=== PATIENT | male | born 1945 | race Caucasian/White ===

== ENCOUNTER 2017-09-22 10:45 | Inpatient (IN) | payer BC, OTHER ==
[2017-09-22] VITALS (7 sets, daily range): BP systolic 145–174; BP diastolic 67–88; PULSE 60–64; TEMP 36.4–37.1; O2SAT 93–96; Ht 182.9 cm; Wt 83.5 kg
[~2017-09-22] VITALS: Ht 182.9 cm; Wt 83.5 kg
--- NOTE | 2017-09-22 09:59 | History and Physical ---
History & Physical Date of Service Sep 22, 2017. History & Physical Chief Complaint rm#7 here for f/u and discussion for LLE claudication. C/O left hip buttock tightening, and continues to have numbness of the left leg and buttocks. No open areas History of Present Illness I had the pleasure of seeing All Melton today for reevaluation of his left lower extremity. He recently had his back surgery with fairly good results. He now has left buttock claudication and very short distances of less than 50 feet. It is relieved with rest but he has to rest for a few minutes. He also complains of some numbness in the leg that develops once he gets the blood tightness. Physical Exam Vitals & Measurements HR: 69 (Monitored) BP: 148/70 SpO2: 97% On exam is blood pressure is 140/90. Femoral pulses are 2 bilaterally. He does have a palpable pulse in the right leg bypass. Left lower extremity has no pulses below the groin that he has decreased capillary refill of the left foot. There is no ulcerations or significant ischemic changes seen. Assessment/Plan 1.Atherosclerosis of [place] arteries of extremities with intermittent claudication, left leg At this point I think he does have significant buttock claudication. Recommended arteriography of the left lower extremity. He does have an aortobifemoral bypass in place. If we can get around the bifurcation and there is anything there to be intervened we will intervene at that time. If we cannot get across the other side than we will either consider a radial approach or an operative approach. I have discussed the risks options and benefits of the procedure with the patient. The patient understands the risks options and benefits and agrees to the procedure. We will keep you informed as to his results and future plans. Sincerely, MICHAEL Dixon MD Problem List/Past Medical History Ongoing Atherosclerosis HTN ( hypertension) Hx of abdominal aortic aneurysm Hyperlipidemia PVD (peripheral vascular disease) S/p femoral-popliteal bypass surgery Tobacco user Historical No qualifying data Procedure/Surgical History Ultrasound of pseudoaneurysm (), double bi-fem (1993), Kldfi-dqeed-kfebzyd vascular bypass, Hernia repair, Repair of aneurysm, Sciatic nerve compression. Medications aspirin 81 mg oral delayed release tablet, 81 mg= 1 tab, PO, Daily atorvastatin 20 mg oral tablet, 20 mg= 1 tab, PO, Daily citalopram 20 mg oral tablet, 40 mg= 2 tab, PO, Daily gabapentin 300 mg oral capsule, 600 mg= 2 cap, PO, tid lisinopril 2.5 mg oral tablet, 2.5 mg= 1 tab, PO, Daily lorazepam 0.5 mg oral tablet, 0.5 mg= 1 tab, PO, Daily, PRN multivitamin with iron, 1 tab, PO , Daily Plendil 5 mg oral tablet, extended release, 1 tab, PO, Daily tiZANidine 4 mg oral tablet, 4 mg= 1 tab, PO, qhs Vitamin C 500 mg oral capsule, 500 mg= 1 cap, PO, Daily Allergies NKA Social History Tobacco Former smoker, Stopped age 65 Years. Family History Diabetes: Sister. Heart disease: Mother. High Blood Pressure: Mother. Review of systems is positive for skin change of color in his lower legs, head and neck no complaints, cardiovascular no complaints, respiratory no complaints , musculoskeletal as per HPI, GI, , endocrine no complaints. Electronic Signature on File Caden Dixon MD Author Signature Dt/Tm: 09/14/2017 10:44 AM Byproducts Operator Sabino Ceballos [facility] [place]-[address], [address] [place] [address] EJS Result Type: .Outpt Ltr Date of Service: September 14, 2017 10:44 EDT Authorization Status: Final Subject: Office Visit Note Author or Import Date: MD Dixon Eugene J on September 14, 2017 10:44 EDT Verified By: MD Dixon Eugene J on September 14, 2017 10:44 EDT Encounter info: [id number], [facility] [place] [facility], Clinic, 09/14/2017 - 09/14/2017
[~2017-09-22 10:45] MED LIST: ASPCH81X PO; ATOR-22 PO; CEFAZOLIN 1000MG IV PUSH 7.5 ML IV SCH; CITA20TA4 PO; FELO5TAB PO; GABA-113 PO; LISI-729 PO; LORA-741 PO; MULT-506 PO; RXC5 PO; SODIUM CHLORIDE 0.9% 1000ML IV SCH; TIZA4CAP PO
[2017-09-22] MEDS ORDERED: MIDAZOLAM HCL 1 MG/ML 2ML VIAL ONE ×2 (12:38→13:55)
[2017-09-22] MEDS ORDERED: FENTANYL CITRATE INJ 50 MCG/1 ML 2 ML VIAL ONE (12:38)
[2017-09-22] MEDS ORDERED: HEPARIN SOD (PORCINE) 1000 UNIT/ML 10 ML VIAL ONE ×3 (12:38→15:07)
--- NOTE | 2017-09-22 13:12 | Pre Sedation Assessment ---
Pre Sedation Assessment General Date of Sedation: Sep 22, 2017. Vital Signs Past 12 Hours Date Time Temp Pulse Resp B/P (MAP) Pulse Ox O2 Delivery O2 Flow Rate FiO2 09/22/17 11:05 36.8 64 18 174/88 (116) 96 Room Air Pre-Sedation Airway Assessment Smoking Status: Former Smoker Hx of Sleep Apnea: No Short Thick Neck: No Thyro-mental Distance: > 3 Finger Breadths Oral Cavity: Dentures Mallampati Classification: Class II ASA Classification: Class III NPO Status Date of Last Intake of Fluids: Sep 21, 2017 Time of Last Intake of Fluids: 1999 Date of Last Intake of Solids: Sep 21, 2017 Time of Last Intake of Solids: 1999 Procedure Planning Contraindications for Sedation: None Current Medications Reviewed: Yes Notes The planned sedation has been discussed with the patient. Informed Consent was obtained. I have identified the patient, determined the appropriateness of sedation and have assessed the patient immediately prior to the procedure. All medicine(s) and interventions are by my order.
--- NOTE | 2017-09-22 13:12 | History & Physical Bridge Note ---
H&P Re-Evaluation Bridge Note: I have examined the patient, reviewed the History & Physical and in the interval since the performance of the History & Physical I have noted the following changes of clinical significance: No changes noted
[2017-09-22] MEDS ORDERED: FENTANYL CITRATE INJ 50 MCG/1 ML 2 ML VIAL IV ONE (13:36)
[2017-09-22] MEDS ORDERED: LIDOCAINE HCL 1% 20 ML VIAL SQ ONE (14:05)
[2017-09-22] MEDS ORDERED: MIDAZOLAM HCL 1 MG/ML 2ML VIAL IV ONE (14:05)
[2017-09-22] MEDS ORDERED: IODIXANOL (VISIPAQUE) 270 MG/ML 150ML OTR ONE (14:05)
--- NOTE | 2017-09-22 14:05 | Discharge Instructions ---
Discharge Instructions Date of Service Sep 22, 2017. Visit Reason for Visit: Left Profunda Femoral Artery Occlusion, Left Super Discharge Discharge Diagnosis / Problem: Lower extremity claudication Discharge Goals Goal(s): Diagnostic testing Activity Recommendations Activity Limitations: per Instructions/Follow-up section Anesthesia . Post Anesthesia Instructions: If you have had General Anesthesia or IV Sedation: * Do not drive today. * Resume driving when surgeon permits. * Do not make important decisions or sign legal documents today. * Call surgeon for: 1. Temperature elevations greater than 101 degrees F. 2. Uncontrollable pain. 3. Excessive bleeding. 4. Persistent nausea and vomiting. 5. Medication intolerance (nausea, vomiting or rash). * For nausea and vomiting use only clear liquids such as: tea, soda, bouillon until nausea subsides, then gradually increase diet as tolerated. * If you have any concerns or questions, call your surgeon's office. If physician is unavailable and it is an emergency, call 911 or go to the nearest emergency room. . Instructions / Follow-Up Instructions / Follow-Up Call [phone] to schedule a follow up appointment if one not already scheduled. SPECIAL CARE INSTRUCTIONS: Medications: * Continue to take your medications as directed. If you have been given a prescription for Plavix, please fill it immediately and take as directed. Incision Care: * Your puncture site may have some bruising and minor swelling for about one week. * You will have a small dressing covering your puncture site. You may remove the dressing after 24 hours and shower. You may let the warm soapy water run over it, but be sure to dry the puncture site well and keep it dry. * DO NOT IMMERSE THE INCISION IN A TUB/POOL/etc. UNTIL HEALED. * Puncture sites should be kept covered with a band-aid until it begins to heal. Restrictions: * Depending on whether you leg or arm was punctured to access the arteries, you will be required to lay flat, hold your arm still, or both, for about 4 hours after the procedure to prevent bleeding. * Limit your activity for the first 48 hours. You may walk and go up and down steps. Avoid excessive bending or movement at the puncture site. Possible Complications: * Excessive Swelling - after blood flow is improved you may notice increased swelling in the lower legs. This is a normal response. This usually depends on the amount of blockages in the leg, how long they have been there prior to your procedure and how much blood flow was restored. Elevating your legs will help to improve this. Please notify our office ([phone] ) if the swelling does not go away after lying in bed overnight. * Infection/Drainage/Bleeding - Drainage or bleeding from the puncture site should be minimal. If you have excessive bleeding or drainage, call our office ([phone]) right away. * Pain - You may experience some mild pain or soreness at your puncture site. If your pain does not improve, please contact our office ([phone]). Call your doctor and seek emergent treatment if you develop: * Temperature above 101 degrees * Any fever or chills * Any redness or purulent drainage from the puncture site * Any new dusky/blue colored toes or feet with coolness or sharp or aching pain. SKIN IRRITATION: * You may experience some redness and/or swelling in the area where radiation was administered. If any skin irritation occurs, please contact your family physician. FOLLOW UP VISIT: Keep any scheduled doctor appointments. Diet Recommendations Recommended Home Diet: resume previous diet Procedures Procedures Performed: Aortagram with bilateral Lower Extremity runoff, Moderate Sedation Pending Studies Studies pending at discharge: no Medical Emergencies . Who to Call and When: Medical Emergencies: If at any time you feel your situation is an emergency, please call 911 immediately. . Non-Emergent Contact Non-Emergency issues call your: Surgeon . . "Provider Documentation" section prepared by Caden Dixon. .
--- NOTE | 2017-09-22 14:06 | [facility] Post Operative Brief Note ---
Immediate Operative Summary Operative Date Sep 22, 2017. 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 Dixon Bias Binding Folder Surgeon(s) Janeth Pena MD Estimated Blood Loss 20 Findings Consistent with Post-Op Diagnosis Specimens None Anesthesia Type IV Sedat Cons RN Only Complication(s) none Disposition Accompanied Pt To Recover: no Disposition:
[2017-09-22] MEDS ORDERED: OXYCODONE/ACETAMINOPHEN 5-325 TAB PO PRN ×2 (14:15→15:45)
[2017-09-22] MEDS ORDERED: HEPARIN SOD (PORCINE) 1000 UNIT/ML 10 ML VIAL IV ONE (14:19)
--- NOTE | 2017-09-22 14:31 | Post Sedation Assessment ---
Post Sedation Assessment General Date of Sedation Sep 22, 2017. Vital Signs: Vital Signs Past 12 Hours Date Time Temp Pulse Resp B/P (MAP) Pulse Ox O2 Delivery O2 Flow Rate FiO2 09/22/17 11:05 36.8 64 18 174/88 (116) 96 Room Air Post Procedure Recovery Score Activity: (2) Moves 4 extremities * Respiration: (2) Deep breath/cough Circulation: (2) +/-20% PreAnes Value Consciousness: (2) Fully Awake Oxygen Saturation: (1) O2 needed for >90% Post Anesthesia Score: 9 Discharge Sedation Level of Care: Fast Track Phase II Post Sedation Plan On clinical assessment, the patient appears to have tolerated the sedation without complications. Patient is recovering as anticipated. Patient will continue to be monitored by nursing and may be discharged when sedation discharge criteria are met per below protocol. Upon Completions of procedure and additional 15 minutes continue every 5 minute vital signs and the P.A.R. score; then discharge to a Phase I or Fast Track to Phase II per the following guidelines: * Discharge Patient to appropriate Phase II area if PAR is 8 or greater or return to pre- procedure baseline. The post - procedure orders will be as directed. * If PAR score is less than 8 or not return to pre-procedure baseline then patient will follow Phase I monitoring till PAR is reached for Phase II. The Phase I may be done in procedure room or may call to secure a Phase I area. * If naloxone or flumazenil are used for reversal, hold in Phase I for an additional 60 -120 minutes before discharge to Phase II. Please call the Sedation Physician to re-evaluate and complete post-note for discharge to Phase II area. Do NOT discharge from procedure sedation or Phase 1 until post- sedation evaluation note is complete by procedure /sedation MD Sedation Discharge Instructions to be given to the patient at discharge to home.
[2017-09-22] MEDS ORDERED: LIDOCAINE HCL 2% 2 ML VIAL (20MG/ML) ONE (14:35)
[2017-09-22] MEDS ORDERED: PROPOFOL IV EMULSION 10 MG/ML 20 ML VIAL ONE ×3 (14:35→15:18)
[2017-09-22] MEDS ORDERED: HEPARIN SOD (PORCINE) 5000 UNIT/ML 1 ML VIAL ONE (14:53)
[2017-09-22] MEDS ORDERED: IODIXANOL (VISIPAQUE) 270 MG/ML 50ML ONE (14:53)
[2017-09-22] MEDS ORDERED: THROMBIN 5000 UNITS KIT ONE (14:53)
[2017-09-22] MEDS ORDERED: GELATIN SPONGE SZ 100 ONE (14:53)
[2017-09-22] MEDS ORDERED: CEFAZOLIN SOD 1 GM VIAL ONE (14:53)
[2017-09-22] MEDS ORDERED: LIDOCAINE HCL 1% 20 ML VIAL ONE (14:56)
[2017-09-22] MEDS ORDERED: BUPIVACAINE/EPINEPHRINE 0.5% MPF 1:200,000 30 ML VIAL ONE (14:56)
[2017-09-22] MEDS ORDERED: LIDOCAINE/EPINEPHRINE 2% 1:200,000 20 ML SDV ONE (14:57)
[2017-09-22] MEDS ORDERED: EpHEDrine SULFATE 50MG/5ML SYR ONE (15:00)
[2017-09-22] MEDS ORDERED: ONDANSETRON INJ 2 MG/ML 2 ML VIAL ONE (15:13)
[2017-09-22] MEDS ORDERED: ONDANSETRON INJ 2 MG/ML 2 ML VIAL IV PRN ×2 (15:15→15:45)
[2017-09-22] MEDS ORDERED: EpHEDrine SULFATE INJ 50 MG/ML AMP IV PRN (15:15)
[2017-09-22] MEDS ORDERED: ATROPINE SULFATE 0.1 MG/ML 5ML SYR IV PRN (15:15)
[2017-09-22] MEDS ORDERED: FENTANYL CITRATE INJ 50 MCG/1 ML 2 ML VIAL IV PRN (15:15)
--- NOTE | 2017-09-22 15:38 | [facility] Post Operative Brief Note ---
Immediate Operative Summary Operative Date Sep 22, 2017. Pre-Operative Diagnosis Right lower extremity thrombus Post-Operative Diagnosis Same Procedure(s) Performed Right Lower Extremity Thrombectomy Surgeon Dr. Caden Dixon Creative Engagement Director Surgeon(s) Dr. Janeth Pena, fellow Estimated Blood Loss 20mL Findings Consistent with Post-Op Diagnosis Specimens A. Right Lower Extremity Thrombus Anesthesia Type MAC Complication(s) none Disposition Accompanied Pt To Recover: no Disposition: Recovery Room / PACU
[2017-09-22] MEDS ORDERED: LORAZEPAM 0.5 MG TAB PO PRN (15:45)
--- NOTE | 2017-09-22 16:13 | [facility] Operative Report ---
Operative Report Operative Date Sep 22, 2017. Pre-Operative Diagnosis Left leg claudication Post-Operative Diagnosis Right groin psuedoaneurysm (preexisting) Right leg (SFA bypass) occlusion. Procedure(s) Performed Aortogram, Right Lower Extremity Graft Thrombectomy Surgeon Dr. Caden Dixon Certified Hyperbaric Technician Surgeon(s) Dr. Janeth Pena, fellow Estimated Blood Loss 20mL Findings Left profunda without flow, LLE with poor, sluggish outflow. Right groin pseudoaneurysm. R AT and Peroneal signals at conclusion. Specimens A. Right Lower Extremity Thrombus Anesthesia Type MAC Complication(s) none Disposition no Recovery Room / PACU Indications Mr. Augustine is a 72 year old man with PAD and left leg claudication. He underwent an aortogram with evaluation of lower extremity runoff. At the conclusion of the procedure, he was noted to have no flow to the right foot, therefore underwent an open thrombectomy of the right leg. Description of Procedure The patient's right groin was prepped and draped in a sterile fashion. Under ultrasound guidance the SFA graft was entered with a needle. The wire did not advance and a hand injection showed placement within the lumen of a pseudoaneurysm of the SFA vein graft. The needle was then redirected and the wire advanced under fluoroscopic guidance to the right limb of the aortobifemoral bypass graft. The access wire was then exchanged for a glidewire. A pigtail catheter was then advanced over the glidewire and an aortogram was performed with the power injector. Successive runs and images were taken to characterize flow to the bilateral lower extremities. There were no targets for intervention in the left leg. The profunda was noted to be occluded. At that point, the procedure was terminated. The sheath was pulled and pressure was held at the right groin puncture site. While evaluating the foot at the end of the case, it was white, cool, and had no pedal signals. There was a palpable and audible pulse within the graft in the medial calf. The decision was then made to do an open graft thrombectomy. The patient was given 5 ,000u of IV heparin. The patient's right leg was prepped and draped in a sterile fashion. Local anesthesia was instilled. A 4cm incision was made longitudinally in the medial calf just anterior to the previous vein graft. The vein graft was identified, controlled, and after administration of 3,000u of IV heparin, the graft was clamped. A 3Fr Greg was passed distally 2 times with return of clot, but without backbleeding. A 2Fr Greg was then passed with clot and adequate back bleeding. The 3Fr Greg was then passed proximally and a large thrombus was also removed. There was brisk outflow noted. The arteriotomy was the closed using interrupted 6-0 prolene sutures and hemostasis was obtained with surgicel. Doppler exam revealed biphasic pedal (Peroneal & DP ) flow. The skin was closed with running 3-0 and 4-0 vicryl and then Dermabond applied atop. The patient tolerated the procedure well. Dr. Dixon was present for the entirety of the procedure. I attest to the content of the Intraoperative Record and any orders documented therein. Any exceptions are noted below.
--- NOTE | 2017-09-22 16:28 | Anesthesiology Progress Note ---
Anesthesia Post Op Note Date & Time Sep 22, 2017 at 16:28 Vital Signs Pain Intensity: 0 Vital Signs Past 12 Hours Date Time Temp Pulse Resp B/P (MAP) Pulse Ox O2 Delivery O2 Flow Rate FiO2 09/22/17 16:15 66 17 156/66 93 Room Air 09/22/17 16:05 66 17 155/67 100 Oxymask 10 09/22/17 15:55 69 18 105/42 100 Oxymask 10 09/22/17 15:47 36.1 69 21 147/65 97 Oxymask 10 09/22/17 14:18 57 14 136/68 98 Oxymask 4 09/22/17 14:13 56 14 145/72 98 Oxymask 4 09/22/17 14:11 56 16 145/72 98 Oxymask 4 09/22/17 14:06 55 15 142/68 98 Oxymask 4 09/22/17 14:01 56 11 158/72 98 Oxymask 4 09/22/17 13:56 55 13 140/73 97 Oxymask 4 09/22/17 13:51 56 15 156/78 98 Oxymask 4 09/22/17 13:46 58 17 138/71 98 Oxymask 4 09/22/17 13:41 57 13 138/71 97 Oxymask 4 09/22/17 13:36 55 14 112/81 97 Oxymask 4 09/22/17 13:29 61 17 173/77 99 Oxymask 4 09/22/17 11:05 36.8 64 18 174/88 (116) 96 Room Air Notes Mental Status: alert / awake / arousable, participated in evaluation Pt Amnestic to Procedure: Yes Nausea / Vomiting: adequately controlled Pain: adequately controlled Airway Patency, RR, SpO2: stable & adequate BP & HR: stable & adequate Hydration State: stable & adequate Anesthetic Complications: no major complications apparent
[2017-09-22 16:53] LABS: BASO % 0.5 %; BASO ABS # 0.03 K/uL (0-0.2); EOS % 3.9 %; EOS ABS # 0.25 K/uL (0-0.5); HEMATOCRIT 40.5 % (42-52); HEMOGLOBIN 13.2 g/dL (14.0-18.0); IG# 0.01 K/uL (0.00-0.02); LYMPH % 23.2 %; LYMPH ABS # 1.47 K/uL (1.2-3.4); MEAN CELL VOLUME 93.1 fL (80-100); MEAN CORPUSCULAR HEMOGLOBIN 30.3 pg (25-34); MEAN CORPUSCULAR HGB CONC 32.6 g/dl (32-36); MEAN PLATELET VOLUME 10.7 fL (7.4-10.4); MONO % 11.1 %; NEUT % 61.1 %; NEUT ABS # 3.87 K/uL (1.4-6.5); PLATELET COUNT 201 K/uL (130-400); RED CELL DISTRIBUTION WIDTH CV 13.4 % (11.5-14.5); RED CELL DISTRIBUTION WIDTH SD 45.6 fL (36.4-46.3); WHITE BLOOD COUNT 6.33 K/uL (4.8-10.8)
[2017-09-22] MEDS ORDERED: D5W AND 1/2NSS 1,000 ML IV SCH (17:50)
[2017-09-22] MEDS ORDERED: ATORVASTATIN 20 MG TAB PO SCH (21:00)
[2017-09-22] MEDS: ENOXAPARIN 30 MG/0.3 ML SYR SQ SCH (21:15)
[2017-09-23 03:47] VITALS: BP 151/69; PULSE 62; TEMP 36.7; O2SAT 96
[2017-09-23 07:48] VITALS: BP 162/70; PULSE 60; TEMP 36.7; O2SAT 96
--- NOTE | 2017-09-23 08:01 | Anesthesiology Progress Note ---
Anesthesia Post Op Note Date & Time Sep 23, 2017 at 08:00 Vital Signs Pain Intensity: 0.0 Vital Signs Past 12 Hours Date Time Temp Pulse Resp B/P (MAP) Pulse Ox O2 Delivery O2 Flow Rate FiO2 09/23/17 07:48 36.7 60 16 162/70 (100) 96 Room Air 09/23/17 03:47 36.7 62 16 151/69 (96) 96 Room Air 09/23/17 00:10 Room Air 09/22/17 22:40 37.1 60 15 160/72 (101) 95 Room Air 09/22/17 20:46 36.6 60 18 146/74 (98) 95 Room Air Notes Mental Status: alert / awake / arousable, participated in evaluation Pt Amnestic to Procedure: Yes Nausea / Vomiting: adequately controlled Pain: adequately controlled Airway Patency, RR, SpO2: stable & adequate BP & HR: stable & adequate Hydration State: stable & adequate Anesthetic Complications: no major complications apparent
[2017-09-23 08:26] VITALS: O2SAT 96
--- NOTE | 2017-09-23 08:57 | Discharge Instructions ---
Discharge Instructions Date of Service Sep 23, 2017. Admission Reason for Admission: Left Profunda Femoral Artery Occlusion Discharge Discharge Diagnosis / Problem: post thrombectomy Right lower extremity, post aortogram with runoff Discharge Goals Goal(s): Decrease discomfort, Therapeutic intervention Activity Recommendations Activity Limitations: per Instructions/Follow-up section . Instructions / Follow-Up Instructions / Follow-Up SPECIAL CARE INSTRUCTIONS: Medications: * Continue to take your medications as directed. If you have been given a prescription for Plavix, please fill it immediately and take as directed. Incision Care: * Your puncture site may have some bruising and minor swelling for about one week. * You will have a small dressing covering your puncture site. You may remove the dressing after 24 hours and shower. You may let the warm soapy water run over it, but be sure to dry the puncture site well and keep it dry. * DO NOT IMMERSE THE INCISION IN A TUB/POOL/etc. UNTIL HEALED. * Puncture sites should be kept covered with a band-aid until it begins to heal. Restrictions: * Depending on whether you leg or arm was punctured to access the arteries, you will be required to lay flat, hold your arm still, or both, for about 4 hours after the procedure to prevent bleeding. * Limit your activity for the first 48 hours. You may walk and go up and down steps. Avoid excessive bending or movement at the puncture site. Possible Complications: * Excessive Swelling - after blood flow is improved you may notice increased swelling in the lower legs. This is a normal response. This usually depends on the amount of blockages in the leg, how long they have been there prior to your procedure and how much blood flow was restored. Elevating your legs will help to improve this. Please notify our office ([phone] ) if the swelling does not go away after lying in bed overnight. * Infection/Drainage/Bleeding - Drainage or bleeding from the puncture site should be minimal. If you have excessive bleeding or drainage, call our office ([phone]) right away. * Pain - You may experience some mild pain or soreness at your puncture site. If your pain does not improve, please contact our office ([phone]). Call your doctor and seek emergent treatment if you develop: * Temperature above 101 degrees * Any fever or chills * Any redness or purulent drainage from the puncture site * Any new dusky/blue colored toes or feet with coolness or sharp or aching pain. SKIN IRRITATION: * You may experience some redness and/or swelling in the area where radiation was administered. If any skin irritation occurs, please contact your family physician. FOLLOW UP VISIT: Keep any scheduled doctor appointments. Current Hospital Diet Patient's current hospital diet: AHA Diet (Heart Healthy) Discharge Diet Recommended Diet: AHA Diet (Heart Healthy) Procedures Procedures Performed: Aortogram, Right Lower Extremity Graft Thrombectomy Pending Studies Studies pending at discharge: no Medical Emergencies . Who to Call and When: Medical Emergencies: If at any time you feel your situation is an emergency, please call 911 immediately. . Non-Emergent Contact Non-Emergency issues call your: Primary Care Provider, Surgeon . "Provider Documentation" section prepared by Zenaida Carroll. .
[2017-09-23] MEDS ORDERED: FELODIPINE 5 MG TABCR PO SCH (09:00)
[2017-09-23] MEDS ORDERED: CITALOPRAM 20 MG TAB PO SCH (09:00)
[2017-09-23] MEDS ORDERED: ASPIRIN 81 MG ECTAB PO SCH (09:00)
[2017-09-23] MEDS ORDERED: GABAPENTIN 600 MG TAB PO SCH (09:00)
[2017-09-23] MEDS: ENOXAPARIN 30 MG/0.3 ML SYR SQ SCH (09:00)
[2017-09-23] MEDS ORDERED: LISINOPRIL 2.5 MG TAB PO SCH (09:00)
[2017-09-23] MEDS ORDERED: MULTIVITAMIN TAB PO SCH (09:00)
--- NOTE | 2017-09-23 09:01 | Progress Note ---
Progress Note Date of Service: Sep 23, 2017. Subjective 72 yo m with hx of PAD and other medical problems, POD #1 after RLE thrombectomy and aortogram without intervention, seen in f/u today. Pt states feeling well. Denies pain or other complaints presently. Objective Vital Signs Vital Signs Past 12 Hours Date Time Temp Pulse Resp B/P (MAP) Pulse Ox O2 Delivery O2 Flow Rate FiO2 09/23/17 08:26 96 Room Air 09/23/17 07:48 36.7 60 16 162/70 (100) 96 Room Air 09/23/17 03:47 36.7 62 16 151/69 (96) 96 Room Air 09/23/17 00:10 Room Air 09/22/17 22:40 37.1 60 15 160/72 (101) 95 Room Air Exam CONST: A&O x4, NAD, generally healthy appearing male CHEST: RRR lungs decreased, but ctab ABD: soft nontender, + bs x 4 quad EXT: Groin + local tenderness/mild ecchymosis. RLE incision C/D/I. Minimal tenderness, no edema or erythema. +2 distal pulse and in BPG. Laboratory and Microbiology Results Past 24 Hours Test 09/22/17 16:43 Range/Units White Blood Count 6.33 4.8-10.8 K/uL Red Blood Count 4.35 4.7-6.1 M/uL Hemoglobin 13.2 14.0-18.0 g/dL Hematocrit 40.5 42-52 % Mean Corpuscular Volume 93.1 80-100 fL Mean Corpuscular Hemoglobin 30.3 25-34 pg Mean Corpuscular Hemoglobin Concent 32.6 32-36 g/dl Platelet Count 201 130-400 K/uL Mean Platelet Volume 10.7 7.4-10.4 fL Neutrophils (%) (Auto) 61.1 % Lymphocytes (%) (Auto) 23.2 % Monocytes (%) (Auto) 11.1 % Eosinophils (%) (Auto) 3.9 % Basophils (%) (Auto) 0.5 % Neutrophils # (Auto) 3.87 1.4-6.5 K/uL Lymphocytes # (Auto) 1.47 1.2-3.4 K/uL Monocytes # (Auto) 0.70 0.11-0.59 K/uL Eosinophils # (Auto) 0.25 0-0.5 K/uL Basophils # (Auto) 0.03 0-0.2 K/uL RDW Standard Deviation 45.6 36.4-46.3 fL RDW Coefficient of Variation 13.4 11.5-14.5 % Immature Granulocyte % (Auto) 0.2 % Immature Granulocyte # (Auto) 0.01 0.00-0.02 K/uL ASSESSMENT and PLAN: s/p RLE thrombectomy d/t acute arterial thrombosis s/p aortogram with runoff, no intervention PAD with claudication Pt doing well post op. OK for d/c home today. WIll see in office in 1-2 weeks.
[2017-09-23 09:42] VITALS: BP 162/70; PULSE 60; TEMP 36.7; O2SAT 96
--- NOTE | 2017-09-23 13:45 | DISCHARGE SUMMARY ---
ADMISSION DIAGNOSIS: Peripheral arterial disease with claudication. DISCHARGE DIAGNOSES: 1. Status post aortogram with runoff without intervention. 2. Status post open thrombectomy of the right lower extremity. 3. Peripheral arterial disease with claudication. DISCHARGE CONDITION: Stable. CONSULTATIONS IN THE HOSPITAL: Included none. PROCEDURES IN THE HOSPITAL: Included. 1. Aortogram with runoff without intervention performed on 09/22/2017 with an EBL of 20 mL. 2. Right lower extremity arterial thrombectomy with an EBL of 20 mL. HISTORY OF PRESENT ILLNESS: Mr. Augustine is a 72-year-old male with a longstanding history of peripheral arterial disease as well as a history of abdominal aortic aneurysm with open repair and a right leg femoral popliteal artery bypass in the past. He was complaining of left lower extremity buttock and hip claudication as well as in his calf and due to the severity of his symptoms, he was recommended to undergo aortography for better evaluation and determination of an operative approach. The procedure was discussed with the patient. He expressed understanding and agreement to proceed. HOSPITAL COURSE: The patient underwent his aortography without intervention. During the procedure, no intervention was performed. However, he was noted postoperatively to have an acute arterial occlusion of his right leg requiring an emergent intervention. He then underwent an open thrombectomy of his right lower extremity as well. This was performed without significant complications. The patient did essentially well postoperatively. He had no significant pain or discomfort. He had no rest pain and the patient did very well. He was considered for discharge on postop day 1. PHYSICAL EXAMINATION: VITAL SIGNS: On day of discharge, vital signs are as follows: Temperature of 36.7, pulse of 60, respiratory rate of 16, blood pressure of 160/78, pulse oximeter 96% on room air. CONSTITUTIONAL: The patient is a mildly chronically ill appearing elderly male, in no acute distress. He ambulated without assistance and is active, alert and oriented x4. HEAD: Normocephalic and atraumatic. EYES: EOMI. ENMT: Demonstrated no hearing loss or pharyngeal erythema. NECK: Supple, nontender. The midline trachea without masses or crepitus. LUNGS: Demonstrated no dyspnea. They are decreased, but clear. CARDIOVASCULAR: Demonstrated nondisplaced apical impulse with a regular rate and rhythm. ABDOMEN: Soft, nontender with normoactive bowel sounds in all 4 quadrants without guarding or rebound. His puncture sites are well approximated. There is some mild local ecchymosis, but there is not particularly tender or edematous. EXTREMITIES: His bilateral upper extremities demonstrate no cyanosis, edema, clubbing, varicosities or ulcers. His right lower extremity surgical incision is well approximated and healing appropriately. There is no edema, tenderness, ecchymosis or discharge. There is an excellent pulse through his bypass graft as well as a +2 DP pulse in his right foot. He has brisk capillary refill and no sign of distal ischemia at this time. DISCHARGE DIET: Should be a low-cholesterol AHA diet. MEDICATIONS UPON DISCHARGE: Were reconciled in the chart and are as per his discharge instructions. FOLLOWUP: Should be with Dr. Dixon or his PA Zenaida Carroll within 2 weeks for reevaluation. He is advised to call the office with any other questions.
== END 2017-09-23 10:42 | disposition home or self-care (01) | DRG 254 ==
LOC: C.ACU 10:45 → C.MSW 15:42 → ENRESERV 16:21
PROVIDERS: ADMIT Surgery Vascular Surgery; ATTEND Surgery Vascular Surgery
PROC: 04CK0ZZ Extirpation of Matter from Right Femoral Artery, Open Approach (ICD-10-PCS; principal; 2017-09-22 13:00)
PROC: B41D1ZZ Fluoroscopy of Aorta and Bilateral Lower Extremity Arteries using Low Osmolar Contrast (ICD-10-PCS; principal; 2017-09-22 13:00)
DX: T82.868A Thrombosis due to vascular prosthetic devices, implants and grafts, initial encounter (principal); I70.212 Atherosclerosis of native arteries of extremities with intermittent claudication, left leg; I10 Essential (primary) hypertension; Z95.828 Presence of other vascular implants and grafts; I72.4 Aneurysm of artery of lower extremity; Y83.2 Surgical operation with anastomosis, bypass or graft as the cause of abnormal reaction of the patient, or of later complication, without mention of misadventure at the time of the procedure; Y92.009 Unspecified place in unspecified non-institutional (private) residence as the place of occurrence of the external cause; Z87.891 Personal history of nicotine dependence; Z83.3 Family history of diabetes mellitus; Z82.49 Family history of ischemic heart disease and other diseases of the circulatory system

== ENCOUNTER 2017-10-18 09:45 | Inpatient (IN) | payer BC, OTHER ==
[2017-10-17 07:19] VITALS: BMI 25.0
[2017-10-17 08:55] VITALS: BMI 26.0
--- NOTE | 2017-10-17 09:04 | PAT Medication Instructions ---
Service Date Oct 17, 2017. Current Home Medication List Ascorbic Acid (Vitamin C), 500 MG PO QAM Aspirin (Aspirin Chewable), 81 MG PO QAM Atorvastatin (Lipitor), 20 MG PO HS Citalopram Hydrobromide (Citalopram Hydrobromide), 40 MG PO QAM Felodipine (Plendil), 5 MG PO QAM Gabapentin (Neurontin), 600 MG PO QAM Lisinopril (Lisinopril), 2.5 MG PO QAM Lorazepam (Ativan), 0.5 MG PO TID PRN for Anxiety/Agitation Multivitamin (Multivitamin), 1 TAB PO QAM Tizanidine (Zanaflex), 4 MG PO HS PRN for Muscle Spasms Medication Instructions For Your Scheduled Surgery - Hold the following medications the morning of surgery: Tizanidine (Zanaflex), 4 MG PO HS PRN for Muscle Spasms Multivitamin (Multivitamin), 1 TAB PO QAM Ascorbic Acid (Vitamin C), 500 MG PO QAM Lisinopril (Lisinopril), 2.5 MG PO QAM - Take the following medications the morning of surgery with a sip of water: Aspirin (Aspirin Chewable), 81 MG PO QAM (okay to take per surgeon) Citalopram Hydrobromide (Citalopram Hydrobromide), 40 MG PO QAM Felodipine (Plendil), 5 MG PO QAM Gabapentin (Neurontin), 600 MG PO QAM Lorazepam (Ativan), 0.5 MG PO TID PRN for Anxiety/Agitation (if needed) - Take the following medications as scheduled the night before surgery: Tizanidine (Zanaflex), 4 MG PO HS PRN for Muscle Spasms (if needed) Lorazepam (Ativan), 0.5 MG PO TID PRN for Anxiety/Agitation (if needed) Atorvastatin (Lipitor), 20 MG PO HS If you have any questions please call us at [phone] or [phone] or [phone]
--- NOTE | 2017-10-17 09:35 | DIAGNOSTIC IMAGING REPORT ---
TWO VIEW CHEST CLINICAL HISTORY: Preoperative examination. FINDINGS: PA and lateral chest radiographs are compared to study dated 07/17/2017. The heart is top normal for projection and there is atherosclerotic calcification of the thoracic aorta. Enlargement of the central pulmonary arteries suggests pulmonary artery hypertension. Emphysema and chronic interstitial thickening are similar to previous. No airspace consolidation or pleural effusion is identified. There is no pneumothorax. The skeletal structures are osteopenic. The bony thorax appears intact. IMPRESSION: Emphysematous change with no active disease in the chest. Electronically signed by: Ezequiel Steele M.D. 10/17/2017 9:34 AM Dictated Date/Time: 10/17/2017 9:32 AM
[2017-10-17 10:32] LABS: BASO % 0.3 %; BASO ABS # 0.02 K/uL (0-0.2); EOS % 4.5 %; EOS ABS # 0.32 K/uL (0-0.5); HEMATOCRIT 47.7 % (42-52); HEMOGLOBIN 15.8 g/dL (14.0-18.0); IG# 0.04 K/uL (0.00-0.02); LYMPH % 18.5 %; LYMPH ABS # 1.31 K/uL (1.2-3.4); MEAN CELL VOLUME 92.4 fL (80-100); MEAN CORPUSCULAR HEMOGLOBIN 30.6 pg (25-34); MEAN CORPUSCULAR HGB CONC 33.1 g/dl (32-36); MONO % 9.7 %; MONO ABS # 0.69 K/uL (0.11-0.59); NEUT % 66.4 %; PLATELET COUNT 224 K/uL (130-400); RED CELL DISTRIBUTION WIDTH CV 13.6 % (11.5-14.5); RED CELL DISTRIBUTION WIDTH SD 45.9 fL (36.4-46.3); WHITE BLOOD COUNT 7.08 K/uL (4.8-10.8)
[2017-10-17 10:39] LABS: CALCIUM 9.7 mg/dl (8.5-10.1); CREATININE 0.97 mg/dl (0.60-1.40); POTASSIUM 4.6 mmol/L (3.5-5.1)
[2017-10-17 10:41] LABS: PTT PATIENT 34.7 SECONDS (21.0-31.0)
[2017-10-18] VITALS (14 sets, daily range): BP systolic 126–166; BP diastolic 44–75; PULSE 60–71; TEMP 36.4–37; O2SAT 90–97; Ht 182.9 cm; Wt 82.0 kg
[~2017-10-18] VITALS: Ht 182.9 cm; Wt 82.0 kg
--- NOTE | 2017-10-18 06:07 | History and Physical ---
History & Physical Date of Service Oct 18, 2017. History & Physical History & Physical Chief Complaint rm#[id number] here for f/u and discussion for LLE claudication. C/O left hip buttock tightening, and continues to have numbness of the left leg and buttocks. No open areas. 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 He is now admitted for repair of these. History of Present Illness I had the pleasure of seeing All Melton today for reevaluation of his left lower extremity. He recently had his back surgery with fairly good results. He now has left buttock claudication and very short distances of less than 50 feet. It is relieved with rest but he has to rest for a few minutes. He also complains of some numbness in the leg that develops once he gets the blood tightness. Physical Exam Vitals & Measurements HR: 69 (Monitored) BP: 148/70 SpO2: 97% On exam is blood pressure is 140/90. Femoral pulses are 2 bilaterally. He does have a palpable pulse in the right leg bypass. Left lower extremity has no pulses below the groin that he has decreased capillary refill of the left foot. There is no ulcerations or significant ischemic changes seen. Assessment/Plan 1.Atherosclerosis of [place] arteries of extremities with intermittent claudication, left leg At this point I think he does have significant buttock claudication. Recommended: Patient is admitted for repair of his right femoral artery pseudoaneurysm and revision of his bypass anastomosis. I have discussed the risks options and benefits of the procedure with the patient. The patient understands the risks options and benefits and agrees to the procedure. Sincerely, MICHAEL Dixon MD Problem List/Past Medical History Ongoing Atherosclerosis HTN ( hypertension) Hx of abdominal aortic aneurysm Hyperlipidemia PVD (peripheral vascular disease) S/p femoral-popliteal bypass surgery Tobacco user Historical No qualifying data Procedure/Surgical History Ultrasound of pseudoaneurysm (), double bi-fem (1993), [id number] vascular bypass, Hernia repair, Repair of aneurysm, Sciatic nerve compression. Medications aspirin 81 mg oral delayed release tablet, 81 mg= 1 tab, PO, Daily atorvastatin 20 mg oral tablet, 20 mg= 1 tab, PO, Daily citalopram 20 mg oral tablet, 40 mg= 2 tab, PO, Daily gabapentin 300 mg oral capsule, 600 mg= 2 cap, PO, tid lisinopril 2.5 mg oral tablet, 2.5 mg= 1 tab, PO, Daily lorazepam 0.5 mg oral tablet, 0.5 mg= 1 tab, PO, Daily, PRN multivitamin with iron, 1 tab, PO , Daily Plendil 5 mg oral tablet, extended release, 1 tab, PO, Daily tiZANidine 4 mg oral tablet, 4 mg= 1 tab, PO, qhs Vitamin C 500 mg oral capsule, 500 mg= 1 cap, PO, Daily Allergies NKA Social History Tobacco Former smoker, Stopped age 65 Years. Family History Diabetes: Sister. Heart disease: Mother. High Blood Pressure: Mother. Review of systems is positive for skin change of color in his lower legs, head and neck no complaints, cardiovascular no complaints, respiratory no complaints , musculoskeletal as per HPI, GI, , endocrine no complaints. Electronic Signature on File
[~2017-10-18 09:45] MED LIST changes: +ASCO1CAP3 PO; -CEFAZOLIN 1000MG IV PUSH 7.5 ML IV SCH; +CEFAZOLIN 2000MG IV PUSH 15 ML IV SCH; -CITA20TA4 PO; +CITA40TA4 PO; +LACTATED RINGER'S 1000ML 1,000 ML IV SCH; +LISI-1116 PO; -LISI-729 PO; -RXC5 PO; +SODIUM CHLORIDE 0.9% 1000ML 1,000 ML IV SCH; -SODIUM CHLORIDE 0.9% 1000ML IV SCH
[2017-10-18] MEDS ORDERED: FENTANYL CITRATE INJ 50 MCG/1 ML 2 ML VIAL ONE ×2 (10:21→15:26)
[2017-10-18] MEDS ORDERED: MIDAZOLAM HCL 1 MG/ML 2ML VIAL ONE (10:21)
[2017-10-18 10:51] LABS: CALCIUM 9.5 mg/dl (8.5-10.1); CREATININE 0.98 mg/dl (0.60-1.40); POTASSIUM 4.1 mmol/L (3.5-5.1)
[2017-10-18] MEDS ORDERED: ONDANSETRON INJ 2 MG/ML 2 ML VIAL IV PRN (12:00)
[2017-10-18] MEDS ORDERED: FENTANYL CITRATE INJ 50 MCG/1 ML 2 ML VIAL IV PRN (12:00)
[2017-10-18] MEDS ORDERED: EpHEDrine SULFATE INJ 50 MG/ML AMP IV PRN (12:00)
[2017-10-18] MEDS ORDERED: ATROPINE SULFATE 0.1 MG/ML 5ML SYR IV PRN (12:00)
[2017-10-18] MEDS ORDERED: ACETAMINOPHEN 1000 MG/100 ML IV IV ONE (12:32)
[2017-10-18] MEDS ORDERED: PAPAVERINE HCL INJ 30 MG/ML 2 ML VIAL ONE (14:02)
[2017-10-18] MEDS ORDERED: HEPARIN SOD (PORCINE) 1000 UNIT/ML 10 ML VIAL ONE ×4 (14:02→17:50)
[2017-10-18] MEDS ORDERED: THROMBIN 5000 UNITS KIT ONE (14:03)
[2017-10-18] MEDS ORDERED: LIDOCAINE HCL 1% 20 ML VIAL ONE (14:03)
[2017-10-18] MEDS ORDERED: BUPIVACAINE/EPINEPHRINE 0.5% MPF 1:200,000 30 ML VIAL ONE (14:03)
[2017-10-18] MEDS ORDERED: IODIXANOL (VISIPAQUE) 270 MG/ML 50ML ONE (14:04)
[2017-10-18] MEDS ORDERED: GELATIN SPONGE SZ 100 ONE (14:04)
[2017-10-18] MEDS ORDERED: CEFAZOLIN SOD 1 GM VIAL ONE (14:04)
[2017-10-18] MEDS ORDERED: THROMBIN FOR SOLN 20000 UNIT KIT ONE (14:08)
--- NOTE | 2017-10-18 15:07 | Anesthesiology Progress Note ---
Anesthesia Progress Note Date of Service Oct 18, 2017. Progress Notes Arterial line placed in ASU II prior to going to the OR in preparation for fem pop redo with Dr. Dixon. Left wrist prepped with chlorhexidine and draped with sterile towels. Site infiltrated with 1 cc of 2% lidocaine. 20 G angiocath placed under sterile technique utilizing sterile gloves, surgical hats and masks. Catheter threaded using seldinger technique with return of pulsatile, bright red blood. Site covered with occlusive dressing and taped in place. Waveform consistent with correct arterial placement. After placement, fingers of left hand had normal perfusion. Patient tolerated procedure well without complications.
[2017-10-18] MEDS ORDERED: EpHEDrine SULFATE INJ 50 MG/ML AMP ONE (15:28)
[2017-10-18] MEDS ORDERED: GLYCOPYRROLATE INJ 0.2 MG/ML VIAL ONE (15:28)
[2017-10-18] MEDS ORDERED: METOCLOPRAMIDE HCL INJ 5 MG/ML 2 ML VIAL ONE (15:28)
[2017-10-18] MEDS ORDERED: NEOSTIGMINE METHYLSULFATE 5 MG/5 ML SYR ONE ×2 (15:28→17:49)
[2017-10-18] MEDS ORDERED: LIDOCAINE HCL 2% 2 ML VIAL (20MG/ML) ONE (15:28)
[2017-10-18] MEDS ORDERED: PROPOFOL IV EMULSION 10 MG/ML 20 ML VIAL ONE (15:28)
[2017-10-18] MEDS ORDERED: DEXAMETHASONE SOD INJ 4 MG/ML VIAL ONE (15:28)
[2017-10-18] MEDS ORDERED: ROCURONIUM BROMIDE 10 MG/ML 5 ML VIAL ONE ×2 (15:28→15:57)
[2017-10-18] MEDS ORDERED: LARYING-O-JET KIT (LTA) ONE (15:28)
[2017-10-18] MEDS ORDERED: ONDANSETRON INJ 2 MG/ML 2 ML VIAL ONE (15:28)
[2017-10-18] MEDS ORDERED: PROTAMINE SULFATE 10 MG/ML 5 ML VIAL IV ONE (17:50)
--- NOTE | 2017-10-18 18:52 | [facility] Post Operative Brief Note ---
Immediate Operative Summary Operative Date Oct 18, 2017. 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
--- NOTE | 2017-10-18 19:20 | [facility] Operative Report ---
Operative Report Operative Date Oct 18, 2017. 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 Augustine is a 72 year old male with a history of peripheral arterial disease and complaints of left lower extremity claudication. He has previously undergone an aorto-fem bypass as well as a fem-posterior tibial bypass. He recently underwent arteriography which showed a right femoral anastomotic aneurysm with stenosis of his aorto-femoral distal anastomosis. The risks, benefits and alternatives were discussed with him and he agreed to undergo operative intervention. Description of Procedure The patient was brought to the operating room and placed in the supine position. The procedure was performed under general anesthesia. He was given preoperative antibiotics. A godfrey catheter was placed. The right groin was prepped and draped in the standard sterile fashion. A longitudinal skin incision was made through the previous groin incision. Fascia and lymphatic tissue were bisected with electrocautery. There was significant scar tissue due to multiple previous groin dissections. The previous proximal anastomosis of the previous femoral to posterior tibial bypass graft was dissected free. The distal anastomosis of the previous aorto-femoral bypass was dissected free. There was pseudoaneurysm surrounding this anastomosis. 7000 U IV heparin were administered. Three minutes after heparin administration the aorto-fem graft was clamped with a DeBakey clamp. The profunda artery was clamped with a profunda clamp. The vein graft was clamped with a DeBakey clamp. The SFA was known to be occluded. An arteriotomy was performed on the pseudoaneurysm and aorto-fem Dacron graft with a #11 blade scalpel. This was extended distally using a Pott's scissors. The pseudoaneurysm sac was dissected free and excised. The previous Dacron graft was transected. The previous femoral anastomosis site of his aorta-femoral bypass was excised. An 11mm Dacron graft was anastomosed in an end to side fashion to the quechan femoral artery at the level of the profunda artery takeoff with a 5-0 Prolene. The profunda artery and vein graft were backbled and the anastomosis was completed. The new graft was then anastomosed in an end to end fashion to the previous graft with a 5-0 Prolene. Following this there was decreased pulsatility in the vein graft. His foot was examined and appeared to be pale. Arteriotomy was made over the new graft. A 3 Greg balloon was passed down the graft and clot was removed. A 5 Greg balloon was then used and additional clot removed. There was then good flow in the graft. The arteriotomy was closed with 5-0 Prolene. The suture lines were checked for hemostasis. A 6-0 Prolene was used to reinforce the suture line. Needle hole bleeding was controlled with topical application of Gelfoam thrombin. Doppler evaluation revealed excellent flow signals through the common femoral artery and profunda artery and fem-PT graft. After ensuring hemostasis , 2-0 Vicryl was used to reapproximate the femoral sheath. The incision was closed 3-0 Vicryl for the subcutaneous tissues and the skin was closed with maximilian. Sterile dressings were then applied. The patient was then prepped and draped again over the right lower leg in the standard sterile fashion. The was a palpable pulse in his previous graft below the knee but his foot remained pale without palpable pulses. A small incision was made over the area of his previous graft in mid calf. Arteriotomy was made and a 3 Greg was used to attempt thrombectomy. There was no clot removed and the catheter was unable to be passed. A second more distal incision was made and the graft was dissected free. The 3 Greg was again used with no clot removed. Following this there was improved pulsatility in the distal portion of the graft and his foot appeared to be more pink. The incisions were then closed with 3-0 Vicryl and maximilian. Sterile dressings were applied. The patient tolerated the procedure well and was brought to the PACU in good condition. He had palpable right DP pulses at the conclusion of the case. Dr. Dixon was scrubbed and present for the entire procedure. I attest to the content of the Intraoperative Record and any orders documented therein. Any exceptions are noted below.
[2017-10-18] MEDS ORDERED: MoRPHine SULFATE 4 MG/ML 1 ML CARP\\VIAL IV PRN (19:30)
[2017-10-18] MEDS ORDERED: LORAZEPAM 0.5 MG TAB PO PRN (19:30)
[2017-10-18 19:32] LABS: ISTAT CREATININE 0.8 mg/dl (0.6-1.3); ISTAT IONIZED CALCIUM 1.2 mmol/l (1.12-1.32); ISTAT POTASSIUM 4.8 mEq/L (3.3-5.0)
[2017-10-18 20:18] LABS: CALCIUM 8.5 mg/dl (8.5-10.1); CREATININE 0.96 mg/dl (0.60-1.40); POTASSIUM 4.3 mmol/L (3.5-5.1)
[2017-10-18] MEDS ORDERED: D5W AND 1/2NSS 1,000 ML IV SCH (20:30)
[2017-10-18 21:00] LABS: HEMOGLOBIN 12.3 g/dL (14.0-18.0); MEAN CELL VOLUME 93.1 fL (80-100); MEAN CORPUSCULAR HEMOGLOBIN 30.1 pg (25-34); MEAN CORPUSCULAR HGB CONC 32.4 g/dl (32-36); MEAN PLATELET VOLUME 10.7 fL (7.4-10.4); PLATELET COUNT 197 K/uL (130-400); RED CELL DISTRIBUTION WIDTH CV 13.6 % (11.5-14.5); RED CELL DISTRIBUTION WIDTH SD 46.7 fL (36.4-46.3); WHITE BLOOD COUNT 15.43 K/uL (4.8-10.8)
[2017-10-18] MEDS: ATORVASTATIN 20 MG TAB PO SCH (21:01)
[2017-10-18] MEDS: CEFAZOLIN IV 1,000 MG in SYRINGE 0 ML IV SCH (21:01)
[2017-10-18 21:02] LABS: BASO % 0.1 %; BASO ABS # 0.02 K/uL (0-0.2); EOS % 0.2 %; EOS ABS # 0.03 K/uL (0-0.5); IG# 0.06 K/uL (0.00-0.02); LYMPH % 8.4 %; LYMPH ABS # 1.29 K/uL (1.2-3.4); MONO ABS # 0.16 K/uL (0.11-0.59); NEUT % 89.9 %; NEUT ABS # 13.87 K/uL (1.4-6.5)
--- NOTE | 2017-10-18 22:06 | Anesthesiology Progress Note ---
Anesthesia Post Op Note Date & Time Oct 18, 2017 at 22:06 Vital Signs Pain Intensity: 8.0 Vital Signs Past 12 Hours Date Time Temp Pulse Resp B/P (MAP) Pulse Ox O2 Delivery O2 Flow Rate FiO2 10/18/17 21:15 36.6 66 153/48 (83) 91 Room Air 69 10/18/17 21:02 36.6 66 137/57 (83) 94 Room Air 68 10/18/17 21:00 36.7 65 157/51 (86) 94 Room Air 71 10/18/17 20:46 94 Nasal Cannula 10/18/17 20:45 36.6 65 166/56 (92) 94 Room Air 69 10/18/17 20:34 37.0 60 16 138/53 10/18/17 20:05 60 14 135/72 96 Nasal Cannula 2 149/50 (81) 10/18/17 19:55 36.4 58 18 139/69 93 Nasal Cannula 2 154/53 (84) 10/18/17 19:45 59 18 155/65 99 Oxymask 10 155/65 (87) 10/18/17 19:35 59 18 155/65 99 Oxymask 10 155/65 (87) 10/18/17 19:25 60 22 163/66 99 Oxymask 10 156/57 (89) 10/18/17 19:18 36.1 63 20 148/65 100 Oxymask 10 Notes Mental Status: alert / awake / arousable, participated in evaluation Pt Amnestic to Procedure: Yes Nausea / Vomiting: adequately controlled Pain: adequately controlled Airway Patency, RR, SpO2: stable & adequate BP & HR: stable & adequate Hydration State: stable & adequate Anesthetic Complications: no major complications apparent
[2017-10-19] VITALS (22 sets, daily range): BP systolic 74–165; BP diastolic 42–86; PULSE 63–73; TEMP 36.7–36.8; O2SAT 90–95
[2017-10-19] MEDS: CEFAZOLIN IV 1,000 MG in SYRINGE 0 ML IV SCH (04:03)
[2017-10-19] MEDS: OXYCODONE/ACETAMINOPHEN 5-325 TAB PO PRN ×4 (04:10→23:28)
[2017-10-19 04:47] LABS: BASO % 0.1 %; BASO ABS # 0.01 K/uL (0-0.2); HEMATOCRIT 35.8 % (42-52); HEMOGLOBIN 11.5 g/dL (14.0-18.0); IG# 0.03 K/uL (0.00-0.02); LYMPH % 6.5 %; LYMPH ABS # 0.85 K/uL (1.2-3.4); MEAN CELL VOLUME 92.7 fL (80-100); MEAN CORPUSCULAR HEMOGLOBIN 29.8 pg (25-34); MEAN CORPUSCULAR HGB CONC 32.1 g/dl (32-36); MONO % 8.5 %; MONO ABS # 1.12 K/uL (0.11-0.59); NEUT % 84.7 %; NEUT ABS # 11.09 K/uL (1.4-6.5); PLATELET COUNT 209 K/uL (130-400); RED CELL DISTRIBUTION WIDTH CV 13.8 % (11.5-14.5); RED CELL DISTRIBUTION WIDTH SD 46.3 fL (36.4-46.3)
[2017-10-19 05:11] LABS: CALCIUM 8.3 mg/dl (8.5-10.1); CREATININE 1.03 mg/dl (0.60-1.40)
--- NOTE | 2017-10-19 08:57 | Progress Note ---
Progress Note Date of Service: Oct 19, 2017. Subjective 72 yo m gerald multiple medical problems, POD # 1 after Repair of Right Femoral Artery Anastomosic Aneurysm, Revision of Right Femoral Popliteal Bypass, Thrombectomy of Right Femoral Popliteal Graft by Dr Dixon, seen in f/u today. Pt admits discomfort in R groin, but is controlled with medication. Denies abd pain, foot pain, or any other new complaints. Objective Vital Signs Vital Signs Past 12 Hours Date Time Temp Pulse Resp B/P (MAP) Pulse Ox O2 Delivery O2 Flow Rate FiO2 10/19/17 06:01 71 14 131/63 (88) 91 127/44 10/19/17 05:31 68 13 135/62 (89) 92 127/44 10/19/17 05:01 68 10 139/59 (78) 93 138/47 10/19/17 04:31 70 18 125/42 (51) 92 143/46 10/19/17 04:05 70 14 155/59 (102) 95 148/51 10/19/17 04:02 36.8 73 21 74/60 (64) 94 158/55 10/19/17 03:31 71 14 142/61 (90) 93 150/50 10/19/17 03:01 67 13 133/55 (84) 92 134/47 10/19/17 02:31 68 12 131/54 (84) 92 138/48 10/19/17 02:01 72 14 140/61 (83) 93 145/50 10/19/17 01:31 68 13 138/56 (82) 93 143/47 10/19/17 01:01 69 14 129/49 (75) 92 130/45 10/19/17 00:31 70 17 122/50 (74) 92 132/47 10/19/17 00:01 36.8 71 18 135/54 (81) 92 144/48 10/18/17 23:31 68 13 127/52 (76) 92 131/46 10/18/17 23:30 Room Air 10/18/17 23:17 71 13 141/53 (105) 94 142/50 10/18/17 23:01 71 16 126/53 (77) 92 136/44 10/18/17 22:31 70 12 134/54 (80) 91 Room Air 10/18/17 22:30 36.6 70 10 139/45 (76) 91 Room Air 10/18/17 22:01 69 15 141/64 (89) 90 Room Air 10/18/17 22:00 68 16 149/47 (81) 91 Room Air 10/18/17 21:15 36.6 66 153/48 (83) 91 Room Air 69 10/18/17 21:02 36.6 66 137/57 (83) 94 Room Air 68 10/18/17 21:00 36.7 65 157/51 (86) 94 Room Air 71 Exam CONST: A&O x3, NAD, mildly chronically ill apeparing male CHEST: RRR lungs decreased, but ctab ABD: soft, nontnder, + bs x 4 quad EXT: R groin incision intact with maximilian, no significant bleeding. R distal incision with mild bleeding on dressing. + distal pulse and cap refill Laboratory and Microbiology Results Past 24 Hours Test 10/18/17 10:08 10/18/17 17:59 10/18/17 19:40 10/18/17 21:19 Range/Units Sodium Level 138 141 136-145 mmol/L Potassium Level 4.1 4.3 3.5-5.1 mmol/L Chloride Level 107 109 98-107 mmol/L Carbon Dioxide Level 24 19 21-32 mmol/L Anion Gap 8.0 11.0 12.0 3-11 mmol/L Blood Urea Nitrogen 16 14 7-18 mg/dl Creatinine 0.98 0.96 0.60-1.40 mg/dl Est Creatinine Clear Calc Drug Dose 72.6 74.1 ml/min Estimated GFR () 87.7 89.9 Estimated GFR (Non- 75.6 77.6 BUN/Creatinine Ratio 15.8 14.2 10-20 Random Glucose 115 192 70-99 mg/dl Calcium Level 9.5 8.5 8.5-10.1 mg/dl Bedside Hemoglobin 11.2 14.0-18.0 g/dl Bedside Hematocrit 33 42-52 % Bedside Sodium 137 135-144 mEq/L Bedside Potassium 4.8 3.3-5.0 mEq/L Bedside Chloride 108 101-112 mEq/L Bedside Total CO2 24 24-31 mEq/l Bedside Blood Urea Nitrogen 13 7-18 mg/dl Bedside Creatinine 0.8 0.6-1.3 mg/dl Bedside Glucose (other) 153 70-99 mg/dl Bedside Ionized Calcium (Carlos) 1.20 1.12-1.32 mmol/l White Blood Count 15.43 4.8-10.8 K/uL Red Blood Count 4.08 4.7-6.1 M/uL Hemoglobin 12.3 14.0-18.0 g/dL Hematocrit 38.0 42-52 % Mean Corpuscular Volume 93.1 80-100 fL Mean Corpuscular Hemoglobin 30.1 25-34 pg Mean Corpuscular Hemoglobin Concent 32.4 32-36 g/dl Platelet Count 197 130-400 K/uL Mean Platelet Volume 10.7 7.4-10.4 fL Neutrophils (%) (Auto) 89.9 % Lymphocytes (%) (Auto) 8.4 % Monocytes (%) (Auto) 1.0 % Eosinophils (%) (Auto) 0.2 % Basophils (%) (Auto) 0.1 % Neutrophils # (Auto) 13.87 1.4-6.5 K/uL Lymphocytes # (Auto) 1.29 1.2-3.4 K/uL Monocytes # (Auto) 0.16 0.11-0.59 K/uL Eosinophils # (Auto) 0.03 0-0.5 K/uL Basophils # (Auto) 0.02 0-0.2 K/uL RDW Standard Deviation 46.7 36.4-46.3 fL RDW Coefficient of Variation 13.6 11.5-14.5 % Immature Granulocyte % (Auto) 0.4 % Immature Granulocyte # (Auto) 0.06 0.00-0.02 K/uL Red Blood Cell Morphology Unremarkable Bedside Glucose 202 70-99 mg/dl Test 10/18/17 23:56 10/19/17 04:09 10/19/17 06:06 Range/Units Bedside Glucose 206 132 70-99 mg/dl White Blood Count 13.10 4.8-10.8 K/uL Red Blood Count 3.86 4.7-6.1 M/uL Hemoglobin 11.5 14.0-18.0 g/dL Hematocrit 35.8 42-52 % Mean Corpuscular Volume 92.7 80-100 fL Mean Corpuscular Hemoglobin 29.8 25-34 pg Mean Corpuscular Hemoglobin Concent 32.1 32-36 g/dl Platelet Count 209 130-400 K/uL Mean Platelet Volume 11.0 7.4-10.4 fL Neutrophils (%) (Auto) 84.7 % Lymphocytes (%) (Auto) 6.5 % Monocytes (%) (Auto) 8.5 % Eosinophils (%) (Auto) 0.0 % Basophils (%) (Auto) 0.1 % Neutrophils # (Auto) 11.09 1.4-6.5 K/uL Lymphocytes # (Auto) 0.85 1.2-3.4 K/uL Monocytes # (Auto) 1.12 0.11-0.59 K/uL Eosinophils # (Auto) 0.00 0-0.5 K/uL Basophils # (Auto) 0.01 0-0.2 K/uL RDW Standard Deviation 46.3 36.4-46.3 fL RDW Coefficient of Variation 13.8 11.5-14.5 % Immature Granulocyte % (Auto) 0.2 % Immature Granulocyte # (Auto) 0.03 0.00-0.02 K/uL Sodium Level 139 136-145 mmol/L Potassium Level 4.0 3.5-5.1 mmol/L Chloride Level 108 98-107 mmol/L Carbon Dioxide Level 21 21-32 mmol/L Anion Gap 10.0 3-11 mmol/L Blood Urea Nitrogen 11 7-18 mg/dl Creatinine 1.03 0.60-1.40 mg/dl Est Creatinine Clear Calc Drug Dose 69.1 ml/min Estimated GFR () 82.6 Estimated GFR (Non- 71.2 BUN/Creatinine Ratio 11.1 10-20 Random Glucose 163 70-99 mg/dl Calcium Level 8.3 8.5-10.1 mg/dl Microbiology Results 10/18/17 MRSA DNA Surveillance Screen - Final, Complete Specimen Negative for MRSA by DNA Probe ASSESSMENT adn PLAN: s/p Repair of Right Femoral Artery Anastomosic Aneurysm, Revision of Right Femoral Popliteal Bypass,Thrombectomy of Right Femoral Popliteal Graft R groin pseudoaneurysm and stenosis of fem-pop BPG Pt doing well post op. Increase activity as tolerated. Move to med/surg per Dr Dixon.
[2017-10-19] MEDS: GABAPENTIN 300 MG CAP PO SCH ×2 (09:00→10:14)
[2017-10-19] MEDS: ASPIRIN 81 MG ECTAB PO SCH (10:13)
[2017-10-19] MEDS: MULTIVITAMIN TAB PO SCH (10:13)
[2017-10-19] MEDS: FELODIPINE 5 MG TABCR PO SCH (10:14)
[2017-10-19] MEDS: ENOXAPARIN 30 MG/0.3 ML SYR SQ SCH ×2 (10:14→20:45)
[2017-10-19] MEDS: LISINOPRIL 2.5 MG TAB PO SCH (10:14)
[2017-10-19] MEDS: CITALOPRAM 40 MG TAB PO SCH (10:15)
[2017-10-19] MEDS: ATORVASTATIN 20 MG TAB PO SCH (20:44)
[2017-10-20 07:41] VITALS: BP 152/73; PULSE 65; TEMP 37; O2SAT 92
[2017-10-20 08:45] VITALS: O2SAT 96
[2017-10-20] MEDS: ENOXAPARIN 30 MG/0.3 ML SYR SQ SCH (08:55)
[2017-10-20] MEDS: GABAPENTIN 300 MG CAP PO SCH (08:56)
[2017-10-20] MEDS: LISINOPRIL 2.5 MG TAB PO SCH (08:56)
[2017-10-20] MEDS: FELODIPINE 5 MG TABCR PO SCH (08:56)
[2017-10-20] MEDS: MULTIVITAMIN TAB PO SCH (08:56)
[2017-10-20] MEDS: ASPIRIN 81 MG ECTAB PO SCH (08:56)
[2017-10-20] MEDS: CITALOPRAM 40 MG TAB PO SCH (08:56)
[2017-10-20] MEDS: OXYCODONE/ACETAMINOPHEN 5-325 TAB PO PRN (09:57)
[2017-10-20 11:45] VITALS: BP 116/56; PULSE 77; TEMP 37.4; O2SAT 92
[2017-10-20] MEDS ORDERED: OXYC-57 PO (14:41)
[2017-10-20] MEDS ORDERED: BISA-16 PO (14:41)
--- NOTE | 2017-10-20 14:53 | Discharge Instructions ---
Discharge Instructions Date of Service Oct 20, 2017. Admission Reason for Admission: Peripheral Arterial Disease, Pseudoaneurysm Right Discharge Discharge Diagnosis / Problem: post Right groin pseudoaneurysm repair and revision of fem-pop bypass Discharge Goals Goal(s): Therapeutic intervention, Prevent Disease Progression Activity Recommendations Activity Limitations: per Instructions/Follow-up section 1. May shower, no soaking. 2. Leave wounds open to air, may place light gauze dressing if needed. 3. No lifting more than 10 lbs x 2 weeks 4. Needs appt with Dr Dixon or Zenaida Carroll PA-C, in 2 weeks for staple removal. Call [phone] for appt. 5. May also take Milk of Magnesia as directed for constipation if needed. . Current Hospital Diet Patient's current hospital diet: AHA Diet (Heart Healthy) Discharge Diet Recommended Diet: AHA Diet (Heart Healthy) Procedures Procedures Performed: Repair of Right Femoral Artery Anastomosic Aneurysm, Revision of Right Femoral Popliteal Bypass Thrombectomy of Right Femoral Popliteal Graft Pending Studies Studies pending at discharge: no Medical Emergencies . Who to Call and When: Medical Emergencies: If at any time you feel your situation is an emergency, please call 911 immediately. . Non-Emergent Contact Non-Emergency issues call your: Primary Care Provider, Surgeon . "Provider Documentation" section prepared by Zenaida Carroll. . [facility] Monitoring Program Search Results: patient reviewed within database, no issues identified
--- NOTE | 2017-10-20 14:58 | Progress Note ---
Progress Note Date of Service: Oct 20, 2017. Subjective 72 yo m with multiple medical problems, POD #2 after R groin pseudoaneurysm repair and revision of fem-pop BPG with interposition graft, seen in f/u today. Pt admits pain in R groin surgical site and L hip claudication. Reports flatulence, but no BM since surgery. No abd pain and eating well. Denies any other new complaints. Objective Vital Signs Vital Signs Past 12 Hours Date Time Temp Pulse Resp B/P (MAP) Pulse Ox O2 Delivery O2 Flow Rate FiO2 10/20/17 11:45 37.4 77 16 116/56 (76) 92 Room Air 10/20/17 09:14 Room Air 10/20/17 08:45 96 Room Air 10/20/17 07:41 37.0 65 15 152/73 (99) 92 Room Air Exam CONST: A&O x3, NAD, generally healthy appearing male CHEST: RRR lungs ctab ABD: soft nontender, + bs x 4 quad EXT: RLE dp pulse +2, PT nonpalpable. Incisions C/D/I with maximilian. Minimal oozing from proximal wound after dressing removal. + tenderness and minimal ecchymosis. No erythema noted. Intake & Output 8-Hour Column 10/20/17 10/21/17 10/21/17 16:00 00:00 08:00 Intake Total 475 ml Balance 475 ml 24-Hour Column 10/21/17 08:00 Intake Total 475 ml Balance 475 ml ASSESSMENT and PLAN: s/p R groin pseudoaneurysm repair and revision of fem-pop BPG R groin pseudoaneurysm and stenosis of fem-pop BPG Pt doing well post op. + flatulence. OK for d/c home per ES and recommend stool softeners until BM normal.
[2017-10-20 14:59] VITALS: BP 119/61; PULSE 62; TEMP 36.9; O2SAT 93
[2017-10-20 16:08] VITALS: BP 119/61; PULSE 62; TEMP 36.9; O2SAT 93
--- NOTE | 2017-10-21 14:06 | DISCHARGE SUMMARY ---
ADMISSION DIAGNOSES: 1. Pseudoaneurysm of the right groin. 2. Stenosis of fem-pop bypass. DISCHARGE DIAGNOSES: 1. 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 2. Pseudoaneurysm of the right femoral artery. 3. Stenosis of fem-pop bypass. DISCHARGE CONDITION: Stable. CONSULTATIONS IN THE HOSPITAL: Included none. PROCEDURES IN THE HOSPITAL: Included his right femoral artery anastomotic aneurysm repair and revision of his fem-pop bypass and thrombectomy of the right fem-pop bypass performed on 10/18/2017. The patient had an EBL of approximately 650 mL and no significant complications. HISTORY OF PRESENT ILLNESS: Mr. Augustine and is a 72-year-old male who has long been followed for significant peripheral arterial disease requiring multiple revascularizations and surgical procedures including an abdominal aortic aneurysm of bone repair as well as a history of a right femoral to posterior tibial artery bypass, who presented to Dr. Dixon for evaluation of left hip and buttock claudication. During the workup of this, he underwent an angiography procedure. This demonstrated an occlusion of his left common femoral artery as well as a significant stenosis at the anastomosis of his right fem-pop bypass and a pseudoaneurysm in the area there as well. During his angiography procedure, he did have an occlusion of his right leg fem-pop bypass immediately postop, which required an open thrombectomy as well. Due to the severity of the concern for his right leg fem-pop bypass as well as the discovery of his right groin pseudoaneurysm, the patient was recommended to undergo repair of both and one surgical procedure and the risks, benefits, and alternatives were discussed with the patient, he expressed understanding and agreement to proceed. HOSPITAL COURSE: The patient was admitted after undergoing his right groin procedure. He did essentially well postoperatively, remaining stable. I reviewed his vital signs as well as his labs. The patient's right groin was somewhat tender after surgery; however, pain was easily controlled with medication. He did not have any abdominal pain and he was passing gas and he was felt to be stable enough for discharge on postop day 2. PHYSICAL EXAMINATION: VITAL SIGNS: On day of discharge, his vital signs were as follows: Temperature of 36.9, pulse of 62, respiratory rate of 18, blood pressure 119/61, pulse oximetry of 92% on room air. CONSTITUTIONAL: The patient is a thin, mildly chronically ill appearing elderly male in no acute distress. He ambulated without assistance and was active, alert and oriented x4. HEAD: Normocephalic and atraumatic. EYES: EOMI. ENMT: Demonstrated no hearing loss, rhinorrhea or pharyngeal erythema. NECK: Supple, nontender with midline trachea without mass or crepitus. LUNGS: Decreased throughout but clear bilaterally. CARDIOVASCULAR: Demonstrates nondisplaced apical impulse with a regular rate and rhythm. His peripheral pulses are full in all extremities unless otherwise noted. Specifically, they were normal in his carotid, brachial, radial pulses. His right groin femoral pulse is difficult to palpate due to his recent surgery; however, it is palpable. His right DP pulse is palpable. PT is not. He has brisk capillary refill to the toes with warm pink toes as well. No sign of distal ischemia. His left femoral pulse is nonpalpable and his lower extremity distal pulse in the left is nonpalpable as well. He does have brisk capillary refill noted to the toes and no sign of distal ischemia. NEUROLOGIC: He has grossly intact cranial nerves and grossly intact sensation. EXTREMITIES: The patient's right groin surgical incisions are well approximated and healing appropriately. There is some mild local ecchymosis and edema but there is no significant erythema and there is no significant drainage. DIET: Should be a low-cholesterol AHA diet. MEDICATIONS: Were reconciled in the chart and as per his discharge instructions. FOLLOWUP: Should be with Dr. Dixon or his PA Zenaida Carroll within 2 weeks for reevaluation and removal of maximilian. The patient was advised to call the office with any other questions.
== END 2017-10-20 16:15 | disposition home or self-care (01) | DRG 254 ==
LOC: C.ACU 09:45 → C.MSICU 13:14 → ENRESERV 19:41 → C.MSW 10-19 10:34
PROVIDERS: ADMIT Surgery Vascular Surgery; ATTEND Surgery Vascular Surgery
PROC: 04UK0JZ Supplement Right Femoral Artery with Synthetic Substitute, Open Approach (ICD-10-PCS; principal; 2017-10-18 11:50)
PROC: 04CK0ZZ Extirpation of Matter from Right Femoral Artery, Open Approach (ICD-10-PCS; principal; 2017-10-18 11:50)
PROC: 04JY0ZZ Inspection of Lower Artery, Open Approach (ICD-10-PCS; principal; 2017-10-18 11:50)
PROC: 04PY0JZ Removal of Synthetic Substitute from Lower Artery, Open Approach (ICD-10-PCS; principal; 2017-10-18 11:50)
DX: T82.858A Stenosis of other vascular prosthetic devices, implants and grafts, initial encounter (principal); T82.898A Other specified complication of vascular prosthetic devices, implants and grafts, initial encounter; I70.212 Atherosclerosis of native arteries of extremities with intermittent claudication, left leg; I72.4 Aneurysm of artery of lower extremity; I10 Essential (primary) hypertension; I71.4 Abdominal aortic aneurysm, without rupture; Z87.891 Personal history of nicotine dependence; Z83.3 Family history of diabetes mellitus; Z82.49 Family history of ischemic heart disease and other diseases of the circulatory system; Y83.2 Surgical operation with anastomosis, bypass or graft as the cause of abnormal reaction of the patient, or of later complication, without mention of misadventure at the time of the procedure; Y92.019 Unspecified place in single-family (private) house as the place of occurrence of the external cause